=== PATIENT | male | born 1995 | race Caucasian/White ===

== ENCOUNTER 2019-03-29 01:33 | Emergency (ER) | payer MEDICAID, SELFPAY ==
[2019-03-29 01:35] VITALS: BP 153/90; PULSE 75; RESP 16; TEMP 36.8; O2SAT 100; BMI 21.9
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
[2019-03-29 02:16] LABS: Absolute Lymphocyte Count 2.49 X10^3/uL (0.83-4.51); Basophil# 0.11 X10^3/uL; Eosinophil# 0.18 X10^3/uL; Eosinophils% 1.7 % (0-5); Hemoglobin 16.8 g/dL (13.0-16.5); Lymphocyte # 2.49 X10^3/ul (4.0); Lymphocyte % 23.1 % (19-41); Mean Corp Hgb Conc 34.3 g/dL (32-36); Mean Corpuscular Hgb 32.1 pg (27.0-32.0); Mean Corpuscular Volume 93.5 fL (80-94); Mean Platelet Vol. 8.9 fl (6.2-12.0); Monocyte# 0.92 X10^3/uL; Monocyte% 8.5 % (0-10); NRBC Flagged by Analyzer 0 % (0-5); Neutrophil # 7.04 X10^3/uL (2.7-7.7); Neutrophil % 65.4 % (47-70); Platelet Count 251 K/mm3 (150-450); RBC Distribution Width CV 12.4 % (11.6-14.6); RBC Distribution Width SD 42.7 fl (35.1-43.9); Red Blood Count 5.24 M/mm3 (4.6-6.2); White Blood Count 10.8 K/mm3 (4.4-11.0)
[2019-03-29 02:28] LABS: Amphetamine Urine VISTA POSITIVE (<1000 ng/mL); Barbiturate Urine VISTA NEGATIVE (< 200 ng/mL); Benzodiazepine Urine VISTA NEGATIVE (< 200 ng/mL); Cocaine Urine VISTA NEGATIVE (< 300 ng/mL); Ecstacy Urine VISTA NEGATIVE (< 500 ng/mL); Methadone Urine VISTA NEGATIVE (< 300 ng/mL); PCP Urine VISTA NEGATIVE (< 25 ng/mL); THC Urine VISTA POSITIVE (< 50 ng/mL); Vista UDS pH Range 5
[2019-03-29 02:28] LABS: Anion Gap 6 (5-15); BUN 29 mg/dL (7-18); BUN/Creat Ratio 23.6 RATIO (10-20); Calcium,Total 9.8 mg/dL (8.5-10.1); Chloride 105 mmol/L (98-107); Creatinine, Serum 1.23 mg/dL (0.70-1.30); EST Glomerular Filtration Rate 78 mL/min (>60); Est Glom Filt Rate - Afr Amer 95 mL/min (>60); Estimated Creatinine Clearance 106.83 ml/min; Glucose 86 mg/dL (74-106); Potassium 4.1 mmol/L (3.5-5.1); Sodium Level 139 mmol/L (136-145)
[2019-03-29 02:36] LABS: Alcohol, Blood (Medical)-Serum < 3.0 mg/dL
--- NOTE | 2019-03-29 03:11 | NURSING ---
CRISIS, WENDI AT BEDSIDE
[2019-03-29 05:26] VITALS: PULSE 80; RESP 16; O2SAT 98
== END 2019-03-29 05:28 | disposition home or self-care (01) ==
PROVIDERS: Emergency Provider Emergency Medicine
DX: F22 Delusional disorders (principal); F17.200 Nicotine dependence, unspecified, uncomplicated
CPT/HCPCS: 36415; 80048; 80307; 80320; 85025; 99284; G0480

== ENCOUNTER → 2019-09-07 13:46 | Outpatient (CLI) | payer MEDICAID, SELFPAY ==
[2019-09-07 13:01] VITALS: BMI 21.9
[2019-09-07 15:13] LABS: Absolute Lymphocyte Count 2.56 X10^3/uL (0.83-4.51); Absolute Neutrophil Count 3.4 X10^3/uL (2.0-7.7); Basophil# 0.06 X10^3/uL; Basophil% 0.7 % (0-1); Eosinophil# 1.32 X10^3/uL; Eosinophils% 16.4 % (0-5); Hematocrit 50.3 % (40-54); Hemoglobin 16.4 g/dL (13.0-16.5); Lymphocyte # 2.56 X10^3/ul (4.0); Lymphocyte % 31.8 % (19-41); Mean Corp Hgb Conc 32.6 g/dL (32-36); Mean Corpuscular Hgb 31.6 pg (27.0-32.0); Mean Corpuscular Volume 96.9 fL (80-94); Mean Platelet Vol. 9.9 fl (6.2-12.0); Monocyte# 0.65 X10^3/uL; Monocyte% 8.1 % (0-10); NRBC Flagged by Analyzer 0 % (0-5); Neutrophil # 3.43 X10^3/uL (2.7-7.7); Neutrophil % 42.6 % (47-70); Platelet Count 306 K/mm3 (150-450); RBC Distribution Width CV 11.9 % (11.6-14.6); RBC Distribution Width SD 42.4 fl (35.1-43.9); Red Blood Count 5.19 M/mm3 (4.6-6.2); White Blood Count 8.1 K/mm3 (4.4-11.0)
[2019-09-07 15:41] LABS: ALB/GLOB Ratio 1.1 RATIO (0.9-2.4); AST(SGOT) 90 U/L (15-37); Alanine Aminotransfer ALT/SGPT 259 U/L (16-61); Albumin, Serum 4.8 g/dL (3.2-5.0); Alkaline Phosphatase 109 U/L (45-117); Anion Gap 3 (5-15); BUN 17 mg/dL (7-18); BUN/Creat Ratio 15.5 RATIO (10-20); Calcium,Total 9.4 mg/dL (8.5-10.1); Chloride 104 mmol/L (98-107); EST Glomerular Filtration Rate 89 mL/min (>60); Est Glom Filt Rate - Afr Amer 107 mL/min (>60); Globulin 4.2 g/dL (2.2-4.2); Glucose 94 mg/dL (74-106); Potassium 4.3 mmol/L (3.5-5.1); Sodium Level 137 mmol/L (136-145); T4 Free Direct 0.96 ng/dL (0.76-1.46)
== END ==
PROVIDERS: PCP Internal Medicine; Referring Provider Internal Medicine; Visit Provider Internal Medicine
DX: K52.9 Noninfective gastroenteritis and colitis, unspecified (principal)
CPT/HCPCS: 36415; 80053; 84439; 84443; 85025

== ENCOUNTER 2020-01-25 15:32 | Emergency (ER) | payer MEDICAID, SELFPAY ==
[2019-09-07 13:01] VITALS: BMI 21.9
[2020-01-25 15:33] VITALS: BP 143/97; PULSE 44; RESP 16; TEMP 36.2; O2SAT 99; BMI 22.8
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
--- NOTE | 2020-01-25 16:48 | ED.DEP ---
ED Disposition - Plan for ED Patient: Instructions: ED First- and Second-Degree Bryant ... Referrals: Scott Hansen MD [Primary Care Provider] - 1 Week if not improving Additional Instructions: Motrin and Tylenol for pain. Clean right arm and chest wall gently once a day with soap and water. Apply antibiotic ointment twice daily. Follow-up with your doctor if not improving. Return if looks a lot worse or looks like is getting infected or you develop a fever.
[2020-01-25] MEDS: BACITRACIN 15 GM Tube 1 APPLIC TOPICAL (17:08)
== END 2020-01-25 17:25 | disposition home or self-care (01) ==
LOC: ED 17:20
PROVIDERS: Emergency Provider Emergency Medicine; PCP Internal Medicine
DX: T22.211A Burn of second degree of right forearm, initial encounter (principal); T22.231A Burn of second degree of right upper arm, initial encounter; T21.21XA Burn of second degree of chest wall, initial encounter; T20.26XA Burn of second degree of forehead and cheek, initial encounter; X10.2XXA Contact with fats and cooking oils, initial encounter; Y93.89 Activity, other specified; Y92.9 Unspecified place or not applicable; Y99.9 Unspecified external cause status; Z87.820 Personal history of traumatic brain injury; Z91.5 Personal history of self-harm; Z72.0 Tobacco use
CPT/HCPCS: 99282